=== PATIENT | female | born 1940 | race Caucasian/White ===

== ENCOUNTER → 2018-10-22 | Outpatient (CLI) | payer MEDICARE ==
--- NOTE | 2018-10-22 14:55 | XR ---
EXAMINATION TYPE: XR thoracic spine complete DATE OF EXAM: 10/22/2018 COMPARISON: NONE HISTORY: Pain Alignment is anatomic. There is no compression deformities. Hypertrophic and degenerative disc disea se noted throughout the thoracic spine and lower visualized cervical spine. Multilevel severe degener ative disc disease with hypertrophic spurring. IMPRESSION: 1. Multilevel severe degenerative disc disease with hypertrophic spurring.
== END | disposition home or self-care (01) ==
LOC: RADXRMAIN 14:30
PROVIDERS: ATTEND Family Medicine
DX: M51.34 Other intervertebral disc degeneration, thoracic region (principal)
CPT/HCPCS: 72072

== ENCOUNTER → 2018-11-28 | Outpatient (CLI) | payer MEDICARE ==
--- NOTE | 2018-11-29 10:19 | MM ---
Reason for exam: screening (asymptomatic). Last mammogram was performed 1 year ago. History: Patient is postmenopausal. Benign cyst aspiration of the left breast. Took estrogen for 7 years beginning at age 52. Taking unspecified hormones for 2 months beginning at age 66. Physical Findings: A clinical breast exam by your physician is recommended on an annual basis and results should be correlated with mammographic findings. MG 3D Screening Mammo W/Cad Bilateral CC and MLO view(s) were taken. Prior study comparison: November 13, 2017, bilateral MG 3d screening mammo w/cad. October 13, 2016, right breast MG work up mamm w CAD RT. The breast tissue is heterogeneously dense. This may lower the sensitivity of mammography. Stable benign calcifications. There is no discrete abnormality. No significant changes when compared with prior studies. ASSESSMENT: Benign, BI-RAD 2 RECOMMENDATION: Routine screening mammogram of both breasts in 1 year.
== END | disposition home or self-care (01) ==
LOC: RADMAMWWP 13:24
PROVIDERS: ATTEND Family Medicine
DX: Z12.31 Encounter for screening mammogram for malignant neoplasm of breast (principal)
CPT/HCPCS: 77063; 77067

== ENCOUNTER → 2019-05-06 | Outpatient (CLI) | payer MEDICARE ==
--- NOTE | 2019-05-06 18:48 | ECHOF ---
Referral Reason:R01.1 cardiac murmur MEASUREMENTS -------- HEIGHT: 154.9 cm WEIGHT: 83.9 kg BP: IVSd: 0.8 cm (0.6 - 1.1) LVIDd: 3.8 cm (3.9 - 5.3) LVPWd: 1.0 cm (0.6 - 1.1) IVSs: 1.0 cm LVIDs: 2.3 cm LVPWs: 1.6 cm LAESV Index (A-L): 31.18 ml/m Ao Diam: 2.2 cm (2.0 - 3.7) LA Diam: 3.7 cm (2.7 - 3.8) AV Cusp: 1.5 cm (1.5 - 2.6) EPSS: 1.0 cm MV E Figueroa: 1.14 m/s MV DecT: 244 ms MV A Figueroa: 0.98 m/s MV E/A Ratio: 1.17 RAP: 5.00 mmHg RVSP: 53.70 mmHg MV EF SLOPE: 179.04 mm/s (70 - 150) MV EXCURSION: 20.95 mm (> 18.000) FINDINGS -------- Sinus rhythm. This was a technically good study. The left ventricular size is normal. Left ventricular wall thickness is normal. Overall left vent ricular systolic function is normal with, an EF between 55 - 60 %. The right ventricle is normal in size. LA is midly dilated 29-33ml/m2. The right atrial size is normal. Interatrial and interventricular septum intact. The aortic valve is trileaflet and appears structurally normal. The mitral valve is normal. Moderate mitral regurgitation is present. Severe tricuspid regurgitation present. There is moderate pulmonary hypertension. The right ventr icular systolic pressure, as measured by Doppler, is 53.70mmHg. Pulmonic valve appears structurally normal. The aortic root size is normal. Normal inferior vena cava with normal inspiratory collapse consistent with estimated right atrial pre ssure of 5 mmHg. There is no pericardial effusion. CONCLUSIONS -------- 1. Sinus rhythm. 2. This was a technically good study. 3. The left ventricular size is normal. 4. Left ventricular wall thickness is normal. 5. Overall left ventricular systolic function is normal with, an EF between 55 - 60 %. 6. The right ventricle is normal in size. 7. LA is midly dilated 29-33ml/m2. 8. The right atrial size is normal. 9. Interatrial and interventricular septum intact. 10. The aortic valve is trileaflet and appears structurally normal. 11. The mitral valve is normal. 12. Moderate mitral regurgitation is present. 13. Severe tricuspid regurgitation present. 14. There is moderate pulmonary hypertension. 15. The right ventricular systolic pressure, as measured by Doppler, is 53.70mmHg. 16. Pulmonic valve appears structurally normal. 17. The aortic root size is normal. 18. Normal inferior vena cava with normal inspiratory collapse consistent with estimated right atrial pressure of 5 mmHg. 19. There is no pericardial effusion. OYSTER OPENER: Bernice William RDCS
== END | disposition home or self-care (01) ==
LOC: RADECHMAIN 11:20
PROVIDERS: ATTEND Family Medicine
DX: I08.1 Rheumatic disorders of both mitral and tricuspid valves (principal); I27.20 Pulmonary hypertension, unspecified
CPT/HCPCS: 93306

== ENCOUNTER → 2019-06-10 | Outpatient (CLI) | payer MEDICARE ==
--- NOTE | 2019-06-10 15:27 | XR ---
EXAMINATION TYPE: XR chest 2V DATE OF EXAM: 06/10/2019 COMPARISON: NONE TECHNIQUE: PA and lateral views submitted. HISTORY: Heart murmur pulmonary hypertension FINDINGS: The lungs are clear and there is no pneumothorax, pleural effusion, or focal pneumonia. Hypertrophi c and degenerative change of the spine. No overt failure. IMPRESSION: 1. No acute process.
== END | disposition home or self-care (01) ==
LOC: RADXRMAIN 15:05
PROVIDERS: ATTEND Internal Medicine Interventional Cardiology
DX: I27.20 Pulmonary hypertension, unspecified (principal)
CPT/HCPCS: 71046

== ENCOUNTER → 2019-07-08 | Outpatient (CLI) | payer MEDICARE | DX: I27.20 Pulmonary hypertension, unspecified (principal) | CPT/HCPCS: 94060; 94726; 94729 ==

== ENCOUNTER → 2019-12-27 | Outpatient (CLI) | payer MEDICARE ==
--- NOTE | 2019-12-29 14:32 | MM ---
Reason for exam: screening (asymptomatic). Last mammogram was performed 1 year and 1 month ago. History: Patient is postmenopausal. Benign cyst aspiration of the left breast. Took estrogen for 7 years beginning at age 52. Taking unspecified hormones for 2 months beginning at age 66. Physical Findings: A clinical breast exam by your physician is recommended on an annual basis and results should be correlated with mammographic findings. MG 3D Screening Mammo W/Cad Bilateral CC and MLO view(s) were taken. XCCL view(s) were taken of the right breast. Prior study comparison: November 28, 2018, bilateral MG 3d screening mammo w/cad. November 13, 2017, bilateral MG 3d screening mammo w/cad. The breast tissue is heterogeneously dense. This may lower the sensitivity of mammography. Stable benign calcifications in the left breast. There is no discrete abnormality. No significant changes when compared with prior studies. ASSESSMENT: Benign, BI-RAD 2 RECOMMENDATION: Routine screening mammogram of both breasts in 1 year.
== END | disposition home or self-care (01) ==
LOC: RADMAMWWP 10:35
PROVIDERS: ATTEND Family Medicine
DX: Z12.31 Encounter for screening mammogram for malignant neoplasm of breast (principal)
CPT/HCPCS: 77063; 77067

== ENCOUNTER → 2020-02-11 | Outpatient (CLI) | payer MEDICARE ==
--- NOTE | 2020-02-11 11:53 | CT ---
EXAMINATION TYPE: CT abdomen pelvis wo con DATE OF EXAM: 02/11/2020 HISTORY: Left sided flank pain with recent UTI. Calculus of ureter yulissa. CT DLP: 595.4 mGycm. Automated Exposure Control for Dose Reduction was Utilized. TECHNIQUE: CT scan of the abdomen and pelvis is performed without oral or IV contrast. COMPARISON: NONE FINDINGS: Within the limitations of a non-contrast study, the following observations are made. LUNG BASES: Calcification at level of mitral and aortic valve. LIVER/GB: No significant abnormality is appreciated. PANCREAS: No significant abnormality is seen. SPLEEN: No significant abnormality is seen. ADRENALS: No significant abnormality is seen. KIDNEYS: There are 1-2 renal calculi measuring under 2 mm in size for a reference lower pole right ki dney coronal image 58. No hydronephrosis or definitive right ureter calculi. There are phleboliths al ramone the course of the right ureter. Left kidney shows single 2 to 3 mm calculus lower Pole level coronal image 53 no hydronephrosis or ob structing ureteral calculi. There are adjacent phleboliths along the course of the mid to distal left ureter similar to opposite right side. Multiple bilateral pelvic phleboliths. No intraluminal calculus in the bladder. BOWEL: A few diverticuli in the slightly redundant sigmoid colon. No suspicious small or large bowel dilatation. GENITAL ORGANS: Uterus surgically absent or markedly atrophic. LYMPH NODES: Suspect calcified subcentimeter lymph node near yulissa hepatis coronal image [address] ter than 1cm abdominal or pelvic lymph nodes are appreciated. OSSEOUS STRUCTURES: [id number] multilevel disc space narrowing and spurring. Dextroconvex sco liosis centered at L2 level. Straightening of lumbar spine on sagittal images with multilevel spur di sc complexes effacing the anterior thecal sac. Mild to moderate narrowing and spurring in both hip carlitos ints. Some spurring at greater trochanter level bilaterally. OTHER: Anterior 8 mm calcification left mid abdomen axial image 81 uncertain etiology presumed benign . IMPRESSION: Few tiny nonobstructing renal calculi bilaterally. No definitive hydronephrosis or obstru cting ureteral calculi bilaterally. Multiple phleboliths in the pelvis including along course of the mid to distal ureters bilaterally are present. The source of acute left flank pain not clearly identi fied.
== END | disposition home or self-care (01) ==
LOC: RADCTMAIN 11:19
PROVIDERS: ATTEND Urology
DX: N20.0 Calculus of kidney (principal); I87.8 Other specified disorders of veins; Z88.2 Allergy status to sulfonamides
CPT/HCPCS: 74176

== ENCOUNTER → 2020-07-14 | Outpatient (CLI) | payer MEDICARE ==
--- NOTE | 2020-07-14 13:09 | XR ---
EXAMINATION TYPE: XR KUB DATE OF EXAM: 07/14/2020 COMPARISON: 02/11/2020 HISTORY: Pain TECHNIQUE: One view abdominal series FINDINGS: Scoliotic curvature of the spine. There is a 3 mm calcification overlying the lower pole the left kid lacy. There are multiple 5 mm calcification seen in the right upper quadrant difficult to determine wh ether related to gallbladder or right kidney. There are calcifications along the right paraspinal mel e as well as ossifications along the left paraspinal line. Numerous calcifications are seen in the pe lvis. IMPRESSION: 1. Suspected bilateral nephrolithiasis. Mid right ureteral calculus not excluded. Correlate clinicall y.
== END | disposition home or self-care (01) ==
LOC: RADXRMAIN 12:45
PROVIDERS: ATTEND Urology
DX: N20.0 Calculus of kidney (principal)
CPT/HCPCS: 74018

== ENCOUNTER → 2020-08-17 | Outpatient (CLI) | payer MEDICARE ==
--- NOTE | 2020-08-17 14:26 | CT ---
EXAMINATION TYPE: CT abdomen pelvis wo con DATE OF EXAM: 08/17/2020 COMPARISON: 02/11/2020 HISTORY: Calculus of kidney CT DLP: 546.0 mGycm Automated exposure control for dose reduction was used. TECHNIQUE: Helical acquisition of images was performed from the lung bases through the pelvis. FINDINGS: LUNG BASES: Pleural thickening is somewhat nodular along the right lower lobe appears to be inflammat ory. Atherosclerotic change of the aorta. Small hiatal hernia noted. LIVER/GB: No significant abnormality is appreciated. PANCREAS: No significant abnormality is seen. SPLEEN: No significant abnormality is seen. ADRENALS: No significant abnormality is seen. KIDNEYS: Right kidney: There is a 2 punctate 1 mm lower pole right renal calculus. Mild prominence of the mohini l pelvis. Ureter of normal course and caliber. No evidence of ureteral obstruction or calculus. Left kidney: There is a 2 mm lower pole left renal calculus no hydronephrosis. ADENOPATHY: None visualized. OSSEOUS STRUCTURES: Multilevel hypertrophic degenerative change and scoliosis. Arthropathy of the hi ps.. BOWEL: Bowel gas pattern nonspecific. Diverticulosis of the colon.. OTHER: A stable soft tissue calcifications in the mesentery IMPRESSION: 1. Stable subcentimeter nephrolithiasis bilaterally. No hydronephrosis. 2. Benign-appearing mesenteric calcifications
== END | disposition home or self-care (01) ==
LOC: RADCTMAIN 13:44
PROVIDERS: ATTEND Urology
DX: N20.0 Calculus of kidney (principal); Z88.2 Allergy status to sulfonamides
CPT/HCPCS: 74176

== ENCOUNTER → 2021-01-21 | Outpatient (CLI) | payer MEDICARE ==
--- NOTE | 2021-01-21 14:11 | XR ---
Sternum HISTORY: M 95.4 3 views of the sternum Bone mineralization is maintained. There is no evident depressed sternal fracture. Sternum is not wel l seen on plain film in the oblique projections. Alignment appears maintained. Thoracic spondylosis i s noted. Aorta is dense. IMPRESSION: No acute abnormality. CT scan could be performed for better evaluation.
== END | disposition home or self-care (01) ==
LOC: RADXRMAIN 13:12
PROVIDERS: ATTEND Family Medicine
DX: M95.4 Acquired deformity of chest and rib (principal)
CPT/HCPCS: 71120

== ENCOUNTER → 2021-06-02 | Outpatient (CLI) | payer MEDICARE ==
--- NOTE | 2021-06-06 14:30 | MM ---
Reason for exam: screening (asymptomatic). Last mammogram was performed 1 year and 5 months ago. History: Patient is postmenopausal. Benign cyst aspiration of the left breast. Took hormonal contraceptives for 6 months. Took estrogen for 7 years beginning at age 52. Taking unspecified hormones for 2 months beginning at age 66. Physical Findings: A clinical breast exam by your physician is recommended on an annual basis and results should be correlated with mammographic findings. MG 3D Screening Mammo W/Cad Bilateral CC and MLO view(s) were taken. Prior study comparison: December 27, 2019, bilateral MG 3d screening mammo w/cad. November 28, 2018, bilateral MG 3d screening mammo w/cad. The breast tissue is heterogeneously dense. This may lower the sensitivity of mammography. ASSESSMENT: Benign, BI-RAD 2 RECOMMENDATION: Routine screening mammogram of both breasts in 1 year.
== END | disposition home or self-care (01) ==
LOC: RADMAMWWP 13:07
PROVIDERS: ATTEND Family Medicine
DX: Z12.31 Encounter for screening mammogram for malignant neoplasm of breast (principal); Z78.0 Asymptomatic menopausal state; Z79.3 Long term (current) use of hormonal contraceptives
CPT/HCPCS: 77063; 77067

== ENCOUNTER → 2022-07-20 | Outpatient (CLI) | payer MEDICARE ==
--- NOTE | 2022-07-21 10:37 | MM ---
Reason for Exam: Screening (asymptomatic). Last mammogram was performed 1 year(s) and 1 month(s) ago. Patient History: Menarche at age 14. First Full-Term at age 22. Left ovary removed at age 52. Right ovary removed at age 52. Hysterectomy at age 52. Postmenopausal. Estrogen, starting at age 52 for 7 years. Hormonal Contraceptives for 6 months. Currently using Unspecified Hormone, for 2 months. Benign Cyst Aspiration on the left side. Risk Values: Natali 5 year model risk: 1.5%. NCI Lifetime model risk: 2.5%. Prior Study Comparison: 11/28/2018 Bilateral Screening Mammogram, [facility]. 12/27/2019 Bilateral Screening Mammogram, [facility]. 06/02/2021 Bilateral Screening Mammogram, [facility]. Tissue Density: There are scattered fibroglandular densities. Findings: Analyzed By CAD. Some benign-appearing calcifications are within the right breast. No suspicious groups of microcalcifications, spiculated or lobular masses, architectural distortion or other secondary signs of malignancy are mammographically apparent. Overall Assessment: Benign, BI-RAD 2 Management: Screening Mammogram of both breasts in 1 year. A negative mammogram report should not preclude additional follow up of suspicious palpable abnormalities. Patient should continue monthly self breast exam. A clinical breast exam by your physician is recommended on an annual basis and results should be correlated with mammographic findings. Electronically signed and approved by: Bogdan Gamino D.O. Radiologis
== END | disposition home or self-care (01) ==
LOC: RADMAMWWP 14:55
PROVIDERS: ATTEND Family Medicine
DX: Z12.31 Encounter for screening mammogram for malignant neoplasm of breast (principal); Z78.0 Asymptomatic menopausal state
CPT/HCPCS: 77063; 77067

== ENCOUNTER → 2023-07-27 | Outpatient (CLI) | payer MEDICARE ==
--- NOTE | 2023-07-31 22:51 | MM ---
Reason for Exam: Screening (asymptomatic). Last mammogram was performed 1 year(s) and 1 month(s) ago. Patient History: Menarche at age 14. First Full-Term at age 22. Left ovary removed at age 52. Right ovary removed at age 52. Hysterectomy at age 52. Postmenopausal. Estrogen, starting at age 52 for 7 years. Hormonal Contraceptives for 6 months. Currently using Unspecified Hormone, for 2 months. Benign Cyst Aspiration on the left side. Risk Values: Natali 5 year model risk: 1.5%. NCI Lifetime model risk: 2.3%. Prior Study Comparison: 12/27/2019 Bilateral Screening Mammogram, [facility]. 06/02/2021 Bilateral Screening Mammogram, [facility]. 07/20/2022 Bilateral MG 3D screening mammo w/cad, [facility]. Tissue Density: There are scattered fibroglandular densities. Findings: Analyzed By CAD. Centrally located focal asymmetry on the right remains unchanged. There is no suspicious group of microcalcifications or new suspicious mass in either breast. Overall Assessment: Benign, BI-RAD 2 Management: Screening Mammogram of both breasts in 1 year. . Patient should continue monthly self-breast exams. A clinical breast exam by your physician is recommended on an annual basis. This exam should not preclude additional follow-up of suspicious palpable abnormalities. Note on Natali scores and lifetime risk: 1. A Natali score greater than 3% is considered moderate risk. If this is the case, consider specialist referral to assess eligibility for a risk reducing agent. 2. If overall lifetime risk for the development of breast cancer is 20% or higher, the patient may qualify for future screening with alternating mammogram and breast MRI. Electronically signed and approved by: Rg Benjamin M.D. Radiologist
== END | disposition home or self-care (01) ==
LOC: RADMAMWWP 12:52
PROVIDERS: ATTEND Family Medicine
DX: Z12.31 Encounter for screening mammogram for malignant neoplasm of breast (principal); Z78.0 Asymptomatic menopausal state
CPT/HCPCS: 77063; 77067

== ENCOUNTER → 2024-08-04 | Outpatient (CLI) | payer MEDICARE ==
--- NOTE | 2024-08-05 13:32 | BD ---
EXAMINATION TYPE: Axial Bone Density DATE OF EXAM: 08/04/2024 CLINICAL HISTORY: 83 years old Female. ICD-10 CODE: Z78.0 ASYMPTOMATIC MENOPAUSAL Height: 60 Weight: 157 FRAX RISK QUESTIONS: Alcohol (3 or more units per day): no Family History (Parent hip fracture): no Glucocorticoids (More than 3mos): no (Ex: prednisone, prednisolone, methylprednisolone, dexamethasone, and hydrocortisone). History of Fracture in Adulthood: no Secondary Osteoporosis: 1. Type 1 Diabetes: no 2. Hyperthyroidism: no 3. Menopause before 45: no 4. Malnutrition: no 5. Chronic liver disease: no Rheumatoid Arthritis: no Current Tobacco Use: no RISK FACTORS HISTORY OF: Surgery to Spine/Hip(right/left)/Wrist (right/left): no EXAM MEASUREMENTS: Bone mineral densitometry was performed using the Apparent System. Bone mineral density as measured about the Lumbar spine is: ----- L1-L4(G/cm2): 1.714 T Score Values are as follows: ----- L1: 2.3 ----- L2: 3.8 ----- L3: 5.3 ----- L4: 6.5 ----- L1-L4: 4.5 Z Score Values are as follows: ----- L1: 3.9 ----- L2: 5.4 ----- L3: 7.0 ----- L4: 8.1 ----- L1-L4: 6.1 Bone mineral density has: increased 2.5 % since study of: 11.13.2017 Bone mineral density about the R hip (g/cm2): 0.920 Bone mineral density about the L hip (g/cm2): 1.036 T Score values are as follows: -----R Neck: -1.3 -----L Neck: -0.7 -----R Total: -0.7 -----L Total: 0.2 Z Score values are as follows: -----R Neck: 0.8 -----L Neck: 1.3 -----R Total: 1.2 -----L Total: 2.2 Bone mineral density has: decreased -8.3 % since study of: 12.19.2017 FRAX%s: The graph provided illustrates a 12.2% chance for a major osteoporotic fx and a 2.8% chance f or the hips probability for fx in 10 years time. IMPRESSION: Normal (Values between +1 and -1 indicate normal bone mass). Consider repeating this study in 5 year s or sooner if there is some new clinical indication. NOTE: T-SCORE=SD OF THE YOUNG ADULT MEAN.
--- NOTE | 2024-08-05 17:32 | MM ---
Reason for Exam: Screening (asymptomatic). Last screening mammogram was performed 12 month(s) ago. Patient History: Menarche at age 14. First Full-Term at age 22. Left ovary removed at age 52. Right ovary removed at age 52. Hysterectomy at age 52. Postmenopausal. Estrogen, starting at age 52 for 7 years. Hormonal Contraceptives for 6 months. Currently using Unspecified Hormone, for 2 months. Benign Cyst Aspiration on the left side. Risk Values: Natali 5 year model risk: 1.4%. NCI Lifetime model risk: 2.1%. Prior Study Comparison: 06/02/2021 Bilateral Screening Mammogram, [facility]. 07/20/2022 Bilateral MG 3D screening mammo w/cad, [facility]. 07/27/2023 Bilateral MG 3D screening mammo w/cad, [facility]. Tissue Density: There are scattered areas of fibroglandular density. Findings: Analyzed By CAD. Unchanged bilateral areas of asymmetric density. There is no suspicious group of microcalcifications or new suspicious mass in either breast. Overall Assessment: Benign, BI-RAD 2 Management: Screening Mammogram of both breasts in 1 year. . Patient should continue monthly self-breast exams. A clinical breast exam by your physician is recommended on an annual basis. This exam should not preclude additional follow-up of suspicious palpable abnormalities. Note on Natali scores and lifetime risk: 1. A Natali score greater than 3% is considered moderate risk. If this is the case, consider specialist referral to assess eligibility for a risk reducing agent. 2. If overall lifetime risk for the development of breast cancer is 20% or higher, the patient may qualify for future screening with alternating mammogram and breast MRI. Electronically signed and approved by: Rg Benjamin M.D. Radiologist
== END | disposition home or self-care (01) ==
LOC: RADMAMWWP 14:53
PROVIDERS: ATTEND Family Medicine
DX: Z12.31 Encounter for screening mammogram for malignant neoplasm of breast (principal); M85.89 Other specified disorders of bone density and structure, multiple sites; Z78.0 Asymptomatic menopausal state; Z90.722 Acquired absence of ovaries, bilateral
CPT/HCPCS: 77063; 77067; 77080

== ENCOUNTER → 2025-05-18 | Outpatient (CLI) | payer MEDICARE ==
--- NOTE | 2025-05-19 09:01 | XR ---
EXAMINATION TYPE: XR lumbosacral spine 5 views DATE OF EXAM: 05/18/2025 4:29 PM COMPARISON: None CLINICAL INDICATION: Female, 84 years old with history of M54.50; PHH, pain FINDINGS: Degenerated dextroconvex curvature lumbar spine. There is a right L5 hemisacralization with the sacra l ala. Severe degenerative disc disease especially mid lumbar spine along the left side of concavity. Advanced hypertrophic facet arthropathy is present throughout. Degenerative grade 1 retrolisthesis T 12-L1 and grade 1 anterolisthesis L4-L5. Vertebral body heights are preserved. IMPRESSION: 1. Advanced degenerative and dextroconvex scoliosis of the lumbar spine. 2. Degenerative trace spondylolisthesis T12-L1 and L4-L5. 3. Incidental right L5 hemisacralization. 4. No vertebral compression collapse. [facility], , 05/19/2025 8:58 AM
== END | disposition home or self-care (01) ==
LOC: RADXRMAIN 16:12
PROVIDERS: ATTEND Family Medicine
DX: M51.369 Other intervertebral disc degeneration, lumbar region without mention of lumbar back pain or lower extremity pain (principal); M41.86 Other forms of scoliosis, lumbar region; M43.15 Spondylolisthesis, thoracolumbar region; M47.816 Spondylosis without myelopathy or radiculopathy, lumbar region
CPT/HCPCS: 72110

== ENCOUNTER 2025-05-31 10:09 | Inpatient (IN) | payer MEDICARE ==
[2025-05-31 10:50] LABS: Basophils # (A) 0.05 10*3/uL (0.00-0.10); Basophils % (A) 0.3 %; Eosinophils # (A) 0.45 10*3/uL (0.04-0.35); Eosinophils % (A) 3.0 %; HCT 33.4 % (37.2-46.3); HGB 11.5 g/dL (12.0-15.0); Lymphocytes # (A) 0.20 10*3/uL (0.90-5.00); Lymphocytes % (A) 1.3 %; MCH 30.4 pg (27.0-32.0); MCHC 34.4 g/dL (32.0-37.0); MCV 88.4 fL (80.0-97.0); Monocytes # (A) 0.50 10*3/uL (0.20-1.00); Monocytes % (A) 3.3 %; Neutrophils # (A) 13.85 10*3/uL (1.80-7.70); Neutrophils % (A) 91.2 %; Platelet Count 206 10*3/uL (140-440); RBC 3.78 10*6/uL (4.10-5.20); RDW 12.8 % (11.5-14.5); WBC 15.19 10*3/uL (4.50-10.00)
[2025-05-31] MEDS: SODIUM CHLORIDE 0.9% 500 ML 500 ML IV ONE (10:55)
[2025-05-31] MEDS: ONDANSETRON 4 MG/2 ML VIAL IVP STA (10:55)
[2025-05-31] MEDS: BENZONATATE 100 MG CAP PO STA (10:55)
[2025-05-31] MEDS: guaiFENesin-Coden 100-10MG/5ML 10 ML CUP PO STA (10:55)
[2025-05-31] MEDS: KETOROLAC 15 MG/ML 1 ML VIAL IVP STA (10:55)
[2025-05-31 11:03] LABS: INR 1.1 (<1.2); Partial Thromboplastin Time 22.7 sec (22.0-30.0); Prothrombin Time 11.9 sec (10.0-12.5)
[2025-05-31 11:07] LABS: ALT 128 U/L (4-34); AST 180 U/L (14-36); African American GFR (CKD) 47 (>60 ml/min/1.73 sqM); Albumin 3.5 g/dL (3.5-5.0); Alkaline Phosphatase 293 U/L (38-126); Anion Gap 13 mmol/L; Blood Urea Nitrogen 37 mg/dL (7-17); Calcium 9.7 mg/dL (8.4-10.2); Carbon Dioxide 26 mmol/L (22-30); Chloride 97 mmol/L (98-107); Glucose 146 mg/dL (74-99); Lipase 232 U/L (23-300); Magnesium 1.3 mg/dL (1.6-2.3); Non-African American GFR(CKD) 41 (>60 ml/min/1.73 sqM); Potassium 3.4 mmol/L (3.5-5.1); Sodium 136 mmol/L (137-145); Total Protein 6.2 g/dL (6.3-8.2)
--- NOTE | 2025-05-31 11:14 | XR ---
EXAMINATION TYPE: XR chest 2V DATE OF EXAM: 05/31/2025 10:53 AM COMPARISON: Chest radiographs from 01/21/2021. CLINICAL INDICATION: Female, 84 years old with history of difficulty breathing; [facility] TECHNIQUE: XR chest 2V Frontal and lateral views of the chest. FINDINGS: Lungs/Pleura: Subtle right basilar airspace opacities. There is no evidence of pleural effusion, foca l consolidation, or pneumothorax. Pulmonary vascularity: Unremarkable. Heart/mediastinum: Cardiomediastinal silhouette is unremarkable. Musculoskeletal: No acute osseous pathology. Other findings: None IMPRESSION: Right basilar airspace opacities are subtle correlate for developing pneumonia. [facility], , 05/31/2025 11:12 AM
[2025-05-31 11:15] LABS: NT-Pro-B-Type Natriuretic Pept 3760 pg/mL
[2025-05-31] MEDS ORDERED: PNEUMONIA PROTOCOL UTILIZED 1 EACH MISC PO PRN (11:25)
[2025-05-31 11:31] LABS: RSV Not Detected (Not Detectd)
--- NOTE | 2025-05-31 11:49 | ED ---
SOB HPI - General Chief Complaint: Shortness of Breath Stated Complaint: Chest pain, pain all over Time Seen by Provider: 05/31/25 10:23 Source: patient, RN notes reviewed Mode of arrival: ambulatory Limitations: no limitations - History of Present Illness Initial Comments: This is an 84-year-old female who presents to the emergency department for coughing, congestion, chest pain, and shortness of breath. States that it has been going on for about a week. Cough is nonproductive. Denies any fevers/chills or known sick contacts. States that she is going into coughing fits that then make her vomit. Denies any abdominal pain. MD Complaint: shortness of breath, cough - Related Data Home Medications Medication Instructions Recorded Confirmed Atorvastatin [Lipitor] 20 mg PO DAILY 05/31/25 05/31/25 Cholecalciferol [Vitamin D3 (125 125 mcg PO DAILY 05/31/25 05/31/25 Mcg = 5000 Iu)] Cinnamon Bark [Cinnamon] 1,000 mg PO DAILY 05/31/25 05/31/25 L.acidoph,Paracasei, B.lactis 1 cap PO DAILY 05/31/25 05/31/25 [Probiotic] Levothyroxine Sodium [Synthroid] 88 mcg PO DAILY 05/31/25 05/31/25 Magnesium Oxide [Mag-Ox] 250 mg PO HS 05/31/25 05/31/25 Melatonin 5 mg PO HS 05/31/25 05/31/25 Multivitamins, Thera [Multivitamin 1 tab PO DAILY 05/31/25 05/31/25 (formulary)] Nitrofurantoin Monohyd/M-Cryst 100 mg PO Q12HR 05/31/25 05/31/25 [Macrobid] Vitamin B Complex 1 cap PO DAILY 05/31/25 05/31/25 atenoloL [Tenormin] 50 mg PO HS 05/31/25 05/31/25 flaxseed oiL [Flax Oil] 1,300 mg PO DAILY 05/31/25 05/31/25 hydroCHLOROthiazide [Hydrodiuril] 25 mg PO DAILY 05/31/25 05/31/25 metFORMIN HCL [Glucophage] 500 mg PO DAILY 05/31/25 05/31/25 Allergies Allergy/AdvReac Type Severity Reaction Status Date / Time Sulfa (Sulfonamide Allergy Rash/Hives Verified 05/31/25 13:04 Antibiotics) Review of Systems ROS Statement: Those systems with pertinent positive or pertinent negative responses have been documented in the HPI. ROS Other: All systems not noted in ROS Statement are negative. Past Medical History Past Medical History: Diabetes Mellitus, Hyperlipidemia, Hypertension, Thyroid Disorder Additional Past Medical History / Comment(s): heart valve issues, Additional Past Surgical History / Comment(s): bilateral cateract surgery, bladder suspension, wrist, Past Psychological History: No Psychological Hx Reported Smoking Status: Never smoker Past Alcohol Use History: None Reported Past Drug Use History: None Reported General Exam Limitations: no limitations General appearance: alert, in no apparent distress Head exam: Present: atraumatic, normocephalic, normal inspection Respiratory exam: Present: decreased breath sounds, prolonged expiratory Cardiovascular Exam: Present: regular rate, normal rhythm GI/Abdominal exam: Present: soft. Absent: distended, tenderness Neurological exam: Present: alert, oriented X3, CN II-XII intact Psychiatric exam: Present: normal affect, normal mood Skin exam: Present: warm, dry, intact, normal color. Absent: rash Course Vital Signs 05/31/25 05/31/25 05/31/25 10:11 13:16 14:56 Temperature 98.3 F 97.3 F L Pulse Rate 95 66 65 Respiratory 20 16 18 Rate Blood Pressure 99/65 96/59 101/59 O2 Sat by Pulse 96 95 98 Oximetry 05/31/25 15:25 Temperature Pulse Rate Respiratory 16 Rate Blood Pressure O2 Sat by Pulse Oximetry Medical Decision Making - Medical Decision Making This is an 84 year old female who presents to the emergency department for shortness of breath and chest pain. Was pt. sent in by a medical professional or institution? @ -No Did you speak to anyone other than the patient for history? @ -No Did you review nursing and triage notes? @ -Yes, and I agree, it is accurate with regards to the patient's symptoms. Were old charts reviewed? @ -No Differential Diagnosis? @ -Differential Dyspnea: Coronary syndrome, arrhythmia, tamponade, asthma, COPD, pulmonary embolism, pneumonia, pneumothorax, pulmonary effusion, anaphylaxis, diabetic ketoacidosis, flailed chest, pulmonary contusion, diaphragmatic rupture, anemia, neuromuscular, this is not meant to be an all-inclusive list. EKG interpreted by me (3pts min.)? @ -EKG interpreted by me demonstrating the following: Sinus rhythm. Ventricular rate 88 bpm, NC interval 211 ms, QRS duration 108 ms, QTc 422 ms. X-rays interpreted by me (1pt min.)? @ -Chest x-ray obtained. My interpretation identifies right lower lobe opacities. CT interpreted by me (1pt min.)? @ -Not obtained U/S interpreted by me (1pt. min.)? @ -Gallbladder ultrasound obtained. My interpretation identifies no cholelithiasis or CBD dilation. What testing was considered but not performed? (CT, X-rays, U/S, labs)? Why? @ -None What meds were considered but not given? Why? @ -None Did you discuss the management of the patient with other professionals? @ -Yes, Dr. Dubose, who accepts the patient for admission. Did you reconcile home meds? @ -Yes Was smoking cessation discussed for >3mins.? @ -No Was critical care preformed (if so, how long)? @ -No Were there social determinants of health that impacted care today? How? (Homelessness, low income, unemployed, alcoholism, drug addiction, transportation, low edu. Level, literacy, decrease access to med. care, [facility], rehab)? @ -No Was there de-escalation of care discussed even if they declined? (Discuss DNR or withdrawal of care, Hospice)? @ -No What co-morbidities impacted this encounter? (DM, HTN, Smoking, COPD, CAD, Cancer, CVA, Hep., AIDS, mental health diagnosis, sleep apnea, morbid obesity)? @ -DM Was patient admitted / discharged? @ -Admitted. Lab work demonstrates leukocytosis with a white blood cell count of 15.19. She also has an LUIS ENRIQUE with a creatinine of 1.23 and eGFR of 41. Magnesium is low at 1.3. 3 g of magnesium sulfate administered. BNP 3760. LFTs are also elevated. Chest x-ray reveals concerns for a developing right lower lobe pneumonia. She met sepsis criteria at approximately 1115 when I saw the results of her laboratory studies and chest x-ray. SIRS criteria include her heart rate and leukocytosis with pneumonia as the source of infection. Blood culture obtained and she was started on the pneumonia protocol with ceftriaxone and azithromycin. While she has no documented history of CHF, given the elevated BNP to err on the side of caution she was given 1500 mL of IV fluids as opposed to the typical 30 mL/kg amount. We did obtain a gallbladder ultrasound due to the elevated LFTs. There is concern for pancreatic ductal dilation and they advised further evaluation with an MRCP. However, this is unlikely to be related to today's presentation as she is not experiencing a bdominal pain and is only vomiting if she goes into a coughing fit. It is also unlikely that this is an acute finding and is not something that will need emergent intervention. This can likely be worked up on an outpatient basis after the patient is admitted for management of sepsis secondary to pneumonia and hypomagnesemia. Case discussed with ED attending Dr. Henriquez. Undiagnosed new problem with uncertain prognosis? @ -None Drug Therapy requiring intensive monitoring for toxicity (Heparin, Nitro, Insulin, Cardizem)? @ -None Were any procedures done? @ -None Diagnosis/symptom? @ -Sepsis, pneumonia, hypomagnesemia Acute, or Chronic, or Acute on Chronic? @ -Acute Uncomplicated (without systemic symptoms) or Complicated (systemic symptoms)? @ -Complicated Side effects of treatment? @ -None Exacerbation, Progression, or Severe Exacerbation] @ -Not applicable Poses a threat to life or bodily function? @ -Yes, can lead to septic shock and - Lab Data Result diagrams: 05/31/25 10:41 05/31/25 10:41 Lab Results 05/31/25 05/31/25 05/31/25 Range/Units 10:41 10:41 10:41 WBC 15.19 H (4.50-10.00) 10*3/uL RBC 3.78 L (4.10-5.20) 10*6/uL Hgb 11.5 L (12.0-15.0) g/dL Hct 33.4 L (37.2-46.3) % MCV 88.4 (80.0-97.0) fL MCH 30.4 (27.0-32.0) pg MCHC 34.4 (32.0-37.0) g/dL Plt Count 206 (140-440) 10*3/uL MPV 10.0 (9.5-12.2) fL Immature Gran % (Auto) 0.9 % Neutrophils % 91.2 % Lymphocytes % 1.3 % Monocytes % 3.3 % Eosinophils % 3.0 % Basophils % 0.3 % Immature Gran # 0.14 H (0.00-0.04) 10*3/uL Neutrophils # 13.85 H (1.80-7.70) 10*3/uL Lymphocytes # 0.20 L (0.90-5.00) 10*3/uL Monocytes # 0.50 (0.20-1.00) 10*3/uL Eosinophils # 0.45 H (0.04-0.35) 10*3/uL Basophils # 0.05 (0.00-0.10) 10*3/uL PT 11.9 (10.0-12.5) sec INR 1.1 (<1.2) APTT 22.7 (22.0-30.0) sec Sodium 136 L (137-145) mmol/L Potassium 3.4 L (3.5-5.1) mmol/L Chloride 97 L (98-107) mmol/L Carbon Dioxide 26 (22-30) mmol/L Anion Gap 13 mmol/L BUN 37 H (7-17) mg/dL Creatinine 1.23 H (0.52-1.04) mg/dL Est GFR (CKD-EPI)AfAm 47 (>60 ml/min/1.73 sqM) Est GFR (CKD-EPI)NonAf 41 (>60 ml/min/1.73 sqM) Glucose 146 H (74-99) mg/dL Plasma Lactic Acid Doug (0.7-2.0) mmol/L Calcium 9.7 (8.4-10.2) mg/dL Magnesium 1.3 L (1.6-2.3) mg/dL Total Bilirubin 1.5 H (0.2-1.3) mg/dL AST 180 H (14-36) U/L ALT 128 H (4-34) U/L Alkaline Phosphatase 293 H (38-126) U/L Troponin I (0.000-0.034) ng/mL NT-Pro-B Natriuret Pep 3760 pg/mL Total Protein 6.2 L (6.3-8.2) g/dL Albumin 3.5 (3.5-5.0) g/dL Lipase 232 (23-300) U/L Heterophile Antibody (Negative) Influenza Type A (PCR) (Not Detectd) Influenza Type B (PCR) (Not Detectd) RSV (PCR) (Not Detectd) SARS-CoV-2 (PCR) (Not Detectd) 05/31/25 05/31/25 05/31/25 Range/Units 10:41 10:41 10:41 WBC (4.50-10.00) 10*3/uL RBC (4.10-5.20) 10*6/uL Hgb (12.0-15.0) g/dL Hct (37.2-46.3) % MCV (80.0-97.0) fL MCH (27.0-32.0) pg MCHC (32.0-37.0) g/dL Plt Count (140-440) 10*3/uL MPV (9.5-12.2) fL Immature Gran % (Auto) % Neutrophils % % Lymphocytes % % Monocytes % % Eosinophils % % Basophils % % Immature Gran # (0.00-0.04) 10*3/uL Neutrophils # (1.80-7.70) 10*3/uL Lymphocytes # (0.90-5.00) 10*3/uL Monocytes # (0.20-1.00) 10*3/uL Eosinophils # (0.04-0.35) 10*3/uL Basophils # (0.00-0.10) 10*3/uL PT (10.0-12.5) sec INR (<1.2) APTT (22.0-30.0) sec Sodium (137-145) mmol/L Potassium (3.5-5.1) mmol/L Chloride (98-107) mmol/L Carbon Dioxide (22-30) mmol/L Anion Gap mmol/L BUN (7-17) mg/dL Creatinine (0.52-1.04) mg/dL Est GFR (CKD-EPI)AfAm (>60 ml/min/1.73 sqM) Est GFR (CKD-EPI)NonAf (>60 ml/min/1.73 sqM) Glucose (74-99) mg/dL Plasma Lactic Acid Doug 1.8 (0.7-2.0) mmol/L Calcium (8.4-10.2) mg/dL Magnesium (1.6-2.3) mg/dL Total Bilirubin (0.2-1.3) mg/dL AST (14-36) U/L ALT (4-34) U/L Alkaline Phosphatase (38-126) U/L Troponin I <0.012 (0.000-0.034) ng/mL NT-Pro-B Natriuret Pep pg/mL Total Protein (6.3-8.2) g/dL Albumin (3.5-5.0) g/dL Lipase (23-300) U/L Heterophile Antibody (Negative) Influenza Type A (PCR) Not Detected (Not Detectd) Influenza Type B (PCR) Not Detected (Not Detectd) RSV (PCR) Not Detected (Not Detectd) SARS-CoV-2 (PCR) Not Detected (Not Detectd) 05/31/25 Range/Units 10:41 WBC (4.50-10.00) 10*3/uL RBC (4.10-5.20) 10*6/uL Hgb (12.0-15.0) g/dL Hct (37.2-46.3) % MCV (80.0-97.0) fL MCH (27.0-32.0) pg MCHC (32.0-37.0) g/dL Plt Count (140-440) 10*3/uL MPV (9.5-12.2) fL Immature Gran % (Auto) % Neutrophils % % Lymphocytes % % Monocytes % % Eosinophils % % Basophils % % Immature Gran # (0.00-0.04) 10*3/uL Neutrophils # (1.80-7.70) 10*3/uL Lymphocytes # (0.90-5.00) 10*3/uL Monocytes # (0.20-1.00) 10*3/uL Eosinophils # (0.04-0.35) 10*3/uL Basophils # (0.00-0.10) 10*3/uL PT (10.0-12.5) sec INR (<1.2) APTT (22.0-30.0) sec Sodium (137-145) mmol/L Potassium (3.5-5.1) mmol/L Chloride (98-107) mmol/L Carbon Dioxide (22-30) mmol/L Anion Gap mmol/L BUN (7-17) mg/dL Creatinine (0.52-1.04) mg/dL Est GFR (CKD-EPI)AfAm (>60 ml/min/1.73 sqM) Est GFR (CKD-EPI)NonAf (>60 ml/min/1.73 sqM) Glucose (74-99) mg/dL Plasma Lactic Acid Doug (0.7-2.0) mmol/L Calcium (8.4-10.2) mg/dL Magnesium (1.6-2.3) mg/dL Total Bilirubin (0.2-1.3) mg/dL AST (14-36) U/L ALT (4-34) U/L Alkaline Phosphatase (38-126) U/L Troponin I (0.000-0.034) ng/mL NT-Pro-B Natriuret Pep pg/mL Total Protein (6.3-8.2) g/dL Albumin (3.5-5.0) g/dL Lipase (23-300) U/L Heterophile Antibody Negative (Negative) Influenza Type A (PCR) (Not Detectd) Influenza Type B (PCR) (Not Detectd) RSV (PCR) (Not Detectd) SARS-CoV-2 (PCR) (Not Detectd) - Radiology Data Radiology results: report reviewed, image reviewed Disposition Clinical Impression: Pneumonia, Sepsis, Hypomagnesemia, Dehydration Disposition: ADMITTED IP TO THIS HOSP
--- NOTE | 2025-05-31 12:24 | US ---
EXAMINATION TYPE: US gallbladder DATE OF EXAM: 05/31/2025 COMPARISON: CT 08/17/2020 CLINICAL INDICATION: Female, 84 years old with history of Elevated LFTs; Nausea, Vomiting, and chest pain. TECHNIQUE: Grayscale and color Doppler imaging of the right upper quadrant was performed. FINDINGS: EXAM MEASUREMENTS: Liver Length: 12.0 cm Gallbladder Wall: 0.2 cm CBD: 0.3 cm Right Kidney: 10.6 x 5.1 x 4.4 cm MALT LOADER NOTES: Pancreas: Dilated duct within Liver: wnl Gallbladder: wnl Evidence for sonographic Steele's sign: No CBD: wnl Right Kidney: wnl IMPRESSION: Pancreatic duct appears dilated. Consider MRCP with IV contrast for further evaluation to exclude mal ignancy. The common duct and bile ducts within normal limits. [facility], , 05/31/2025 12:22 PM
[2025-05-31] MEDS: AZITHROMYCIN 500 MG in SODIUM CHLORIDE 0.9% 250 ML IVPB STA (12:29)
[2025-05-31] MEDS ORDERED: HYDROcodone/APAP 5-325MG 1 EACH TAB PO PRN (12:44)
[2025-05-31] MEDS ORDERED: ONDANSETRON 4 MG/2 ML VIAL IVP PRN (12:44)
[2025-05-31] MEDS ORDERED: NALOXONE 0.4 MG/ML 1 ML VIAL IV PRN (12:44)
[2025-05-31] MEDS: LACTATED RINGERS 1,000 ML IV SCH ×2 (13:29→19:37)
[2025-05-31] MEDS: METOCLOPRAMIDE 5 MG/ML 2 ML VIAL IVP STA (13:40)
[2025-05-31] MEDS: MAGNESIUM SULFATE-D5W PMX 1 GM in DEXTROSE/WATER 1 100ML.BAG IVPB SCH (13:42)
--- NOTE | 2025-05-31 14:19 | P.HPIM ---
History of Present Illness 84-year-old female came in with complaints of pleuritic chest pain on the right side along with cough congestion with clear sputum production. Has been going on for about a week. Patient had a chest x-ray which showed right lower lobe infiltrate mostly look like atelectasis. Ordering procalcitonin. Patient did have leukocytosis denied any fever. Patient does not have any fever here either. Patient denied any abdominal pain. Patient had an ultrasound of the abdomen which showed incidental finding of dilated pancreatic duct. Her common bile duct is essentially within normal limits and other bile ductal system is within normal limits. Unknown why the patient had a gallbladder ultrasound. Patient was also having nausea vomiting. REVIEW OF SYSTEMS: All other systems are negative except those mentioned in the HPI PHYSICAL EXAMINATION: GENERAL: The patient is alert and oriented x3, not in any acute distress. Well developed, well nourished. HEENT: Pupils are round and equally reacting to light. EOMI. No scleral icterus. No conjunctival pallor. Normocephalic, atraumatic. No pharyngeal erythema. No thyromegaly. CARDIOVASCULAR: S1 and S2 present. No murmurs, rubs, or gallops. PULMONARY: Chest is clear to auscultation, no wheezing or crackles. ABDOMEN: Soft, nontender, nondistended, normoactive bowel sounds. No palpable organomegaly. MUSCULOSKELETAL: No joint swelling or deformity. EXTREMITIES: No cyanosis, clubbing, or pedal edema. NEUROLOGICAL: Gross neurological examination did not reveal any focal deficits. SKIN: No rashes. Assessment and plan Sepsis secondary to right lower lobe pneumonia: Continue with Rocephin azithromycin awaiting blood cultures and sputum cultures. Ordered procalcitonin level. - Incidental finding of dilated pancreatic duct patient will need MRCP/MRI to rule out any mass but this can be done as an outpatient. Patient denied any recent unintentional weight loss -Hypertension patient is hypotensive we will hold off her antihypertensive medications including hydrochlorothiazide. - Acute renal failure probably prerenal azotemia, with a competent of acute tubular necrosis from hypotension and sepsis. - Hypomagnesemia and hypokalemia secondary to hydrochlorothiazide which is being held - Elevated liver enzymes: Gallbladder ultrasound as mentioned above may be secondary to hypotension and shock liver will repeat CMP tomorrow - Elevated proBNP but clinically patient is not in heart failure exacerbation at this time -Type 2 diabetes mellitus patient will discharge on sliding scale insulin hold off metformin due to renal failure - Hyperlipidemia DVT prophylaxis:-Subcutaneous heparin Past Medical History Past Medical History: Diabetes Mellitus, Hyperlipidemia, Hypertension, Thyroid Disorder Additional Past Medical History / Comment(s): heart valve issues, Additional Past Surgical History / Comment(s): bilateral cateract surgery, bladder suspension, wrist, Past Psychological History: No Psychological Hx Reported Smoking Status: Never smoker Past Alcohol Use History: None Reported Past Drug Use History: None Reported Medications and Allergies Home Medications Medication Instructions Recorded Confirmed Type Atorvastatin [Lipitor] 20 mg PO DAILY 05/31/25 05/31/25 History Cholecalciferol [Vitamin D3 (125 125 mcg PO DAILY 05/31/25 05/31/25 History Mcg = 5000 Iu)] Cinnamon Bark [Cinnamon] 1,000 mg PO DAILY 05/31/25 05/31/25 History L.acidoph,Paracasei, B.lactis 1 cap PO DAILY 05/31/25 05/31/25 History [Probiotic] Levothyroxine Sodium [Synthroid] 88 mcg PO DAILY 05/31/25 05/31/25 History Magnesium Oxide [Mag-Ox] 250 mg PO HS 05/31/25 05/31/25 History Melatonin 5 mg PO HS 05/31/25 05/31/25 History Multivitamins, Thera [Multivitamin 1 tab PO DAILY 05/31/25 05/31/25 History (formulary)] Nitrofurantoin Monohyd/M-Cryst 100 mg PO Q12HR 05/31/25 05/31/25 History [Macrobid] Vitamin B Complex 1 cap PO DAILY 05/31/25 05/31/25 History atenoloL [Tenormin] 50 mg PO HS 05/31/25 05/31/25 History flaxseed oiL [Flax Oil] 1,300 mg PO DAILY 05/31/25 05/31/25 History hydroCHLOROthiazide [Hydrodiuril] 25 mg PO DAILY 05/31/25 05/31/25 History metFORMIN HCL [Glucophage] 500 mg PO DAILY 05/31/25 05/31/25 History Allergies Allergy/AdvReac Type Severity Reaction Status Date / Time Sulfa (Sulfonamide Allergy Rash/Hives Verified 05/31/25 13:04 Antibiotics) Physical Exam Vitals: Vital Signs Temp Pulse Resp BP Pulse Ox 05/31/25 13:16 97.3 F L 66 16 96/59 95 05/31/25 10:11 98.3 F 95 20 99/65 96 Intake and Output 05/30/25 05/31/25 05/31/25 22:59 06:59 14:59 Other: Weight 72.575 kg Results CBC & Chem 7: 05/31/25 10:41 05/31/25 10:41 Labs: Abnormal Lab Results - Last 24 Hours (Table) 05/31/25 05/31/25 Range/Units 10:41 10:41 WBC 15.19 H (4.50-10.00) 10*3/uL RBC 3.78 L (4.10-5.20) 10*6/uL Hgb 11.5 L (12.0-15.0) g/dL Hct 33.4 L (37.2-46.3) % Immature Gran # 0.14 H (0.00-0.04) 10*3/uL Neutrophils # 13.85 H (1.80-7.70) 10*3/uL Lymphocytes # 0.20 L (0.90-5.00) 10*3/uL Eosinophils # 0.45 H (0.04-0.35) 10*3/uL Sodium 136 L (137-145) mmol/L Potassium 3.4 L (3.5-5.1) mmol/L Chloride 97 L (98-107) mmol/L BUN 37 H (7-17) mg/dL Creatinine 1.23 H (0.52-1.04) mg/dL Glucose 146 H (74-99) mg/dL Magnesium 1.3 L (1.6-2.3) mg/dL Total Bilirubin 1.5 H (0.2-1.3) mg/dL AST 180 H (14-36) U/L ALT 128 H (4-34) U/L Alkaline Phosphatase 293 H (38-126) U/L Total Protein 6.2 L (6.3-8.2) g/dL
[2025-05-31] MEDS: POTASSIUM CHLORIDE ER 20 MEQ TAB.ER PO STA (15:30)
[2025-05-31 16:35] LABS: Glucose,Whole Blood 162 mg/dL (70-110)
[2025-05-31] MEDS: INSULIN LISPRO (HumaLOG) 100 UNIT/ML 10 mL VL SQ SCH (16:52)
[2025-05-31 16:55] LABS: Bilirubin,Urine Negative (Negative); Blood,Urine Negative (Negative); Color,Urine Yellow; Glucose,Urine (UA) Negative (Negative); Hyaline Casts,Urine 1 /lpf (0-2); Ketones,Urine Negative (Negative); Leukocyte Esterase,Urine Small (Negative); Nitrite,Urine Negative (Negative); PH, Urine 5.0 (5.0-8.0); Protein,Urine Negative (Negative); RBC,Urine 1 /hpf (0-5); Specific Gravity,Urine 1.013 (1.001-1.035); Squamous Epithelial Cell,Urine 1 /hpf (0-4); Urobilinogen,Urine 2.0 mg/dL (<2.0); WBC,Urine 4 /hpf (0-5)
[2025-05-31 20:14] LABS: Glucose,Whole Blood 126 mg/dL (70-110)
[2025-05-31] MEDS: HEPARIN SODIUM,PORCINE 5,000 UNIT/ML 1 ML VIAL SQ SCH (22:06)
[2025-05-31] MEDS: MAGNESIUM OXIDE 400 MG TAB PO SCH (22:06)
[2025-05-31] MEDS: MELATONIN 5 MG TABLET PO SCH (22:06)
[2025-06-01 06:04] LABS: Glucose,Whole Blood 108 mg/dL (70-110)
--- NOTE | 2025-06-01 06:24 | XR ---
EXAMINATION TYPE: XR chest 2V DATE OF EXAM: 06/01/2025 6:18 AM COMPARISON: Chest radiographs from 05/31/2025 TECHNIQUE: XR chest 2V Frontal and lateral views of the chest. CLINICAL INDICATION:Female, 84 years old with history of pneumonia; FINDINGS: Lungs/Pleura: No pleural effusion or pneumothorax. Chronic diffuse interstitial prominence with focal reticular opacities within the right lung base. Heart/mediastinum: Cardiomediastinal silhouette is prominent in size. Musculoskeletal: Multiple level degenerative disc disease changes seen throughout the spine. IMPRESSION: Chronic diffuse interstitial prominence with focal reticular opacities within the right lung base con cerning for developing pneumonia versus atelectasis. [facility], , 06/01/2025 6:21 AM
[2025-06-01] MEDS: LEVOTHYROXINE 88 MCG TAB PO SCH (06:27)
[2025-06-01 08:19] LABS: HCT 28.2 % (37.2-46.3); HGB 9.2 g/dL (12.0-15.0); MCH 30.0 pg (27.0-32.0); MCHC 32.6 g/dL (32.0-37.0); MCV 91.9 FL (80.0-97.0); NRBC Per 100 WBC 0 X 10*3/uL (0.00-0.01); Platelet Count 155 X 10*3/uL (140-440); RBC 3.07 X 10*6/uL (4.10-5.20); RDW 13.2 % (11.5-14.5); WBC 6.37 X 10*3/uL (4.50-10.00)
[2025-06-01 08:34] LABS: ALT 105 U/L (8-44); AST 110 U/L (13-35); Albumin 2.9 g/dL (3.8-4.9); Albumin/Globulin Ratio 1.53 Ratio (1.60-3.17); Alkaline Phosphatase 224 U/L (41-126); Anion Gap 11.00 mmol/L (4.00-12.00); BUN/Creat Ratio 27.64 Ratio (12.00-20.00); Blood Urea Nitrogen 30.4 mg/dL (9.0-27.0); Calcium 8.7 mg/dL (8.7-10.3); Carbon Dioxide 26.0 mmol/L (21.6-31.8); Chloride 100 mmol/L (96-109); Globulin 1.9 g/dL (1.6-3.3); Glucose 104 mg/dL (70-110); Magnesium 2.0 mg/dL (1.5-2.4); Potassium 3.2 mmol/L (3.5-5.5); Sodium 137 mmol/L (135-145); Total Protein 4.8 g/dL (6.2-8.2)
[2025-06-01] MEDS ORDERED: NON FORMULARY DRUG (Vitamin B Complex [Vitamin B Complex] 1 EACH Capsule) PO SCH (09:00)
[2025-06-01] MEDS ORDERED: metFORMIN 500 MG TAB PO SCH (09:00)
[2025-06-01] MEDS ORDERED: hydroCHLOROthiazide 25 MG TAB PO SCH (09:00)
[2025-06-01] MEDS ORDERED: FLAXSEED OIL 1300 MG PO SCH (09:00)
[2025-06-01] MEDS ORDERED: NON FORMULARY DRUG (Cinnamon Bark [Cinnamon] 500 MG Capsule) PO SCH (09:00)
[2025-06-01] MEDS: ATORVASTATIN 20 MG TAB PO SCH (09:47)
[2025-06-01] MEDS: MULTIVITAMINS, THERA 1 EACH TAB PO SCH (09:47)
[2025-06-01] MEDS: PANTOPRAZOLE 40 MG/10 ML VIAL IV SCH (09:47)
[2025-06-01] MEDS: LACTOBACILLUS ACIDOPHILUS/PECT 1 EACH CAPSULE PO SCH (09:47)
[2025-06-01] MEDS: CHOLECALCIFEROL 125 MCG (5000 IU) TABLET PO SCH (09:47)
[2025-06-01] MEDS: AZITHROMYCIN 500 MG TAB PO SCH (09:47)
[2025-06-01 10:32] LABS: Hepatitis A Antibody IgM Nonreactive (Nonreactive); Hepatitis B Surface Antigen Nonreactive (Nonreactive); Hepatitis C IgG Antibody Nonreactive (Nonreactive)
[2025-06-01 11:07] LABS: Glucose,Whole Blood 129 mg/dL (70-110)
[2025-06-01] MEDS: POTASSIUM CHLORIDE ER 20 MEQ TAB.ER PO STA (12:11)
--- NOTE | 2025-06-01 13:05 | P.PN ---
Subjective 84-year-old female came in with complaints of pleuritic chest pain on the right side along with cough congestion with clear sputum production. Has been going on for about a week. Patient had a chest x-ray which showed right lower lobe infiltrate mostly look like atelectasis. Ordering procalcitonin. Patient did have leukocytosis denied any fever. Patient does not have any fever here either. Patient denied any abdominal pain. Patient had an ultrasound of the abdomen which showed incidental finding of dilated pancreatic duct. Her common bile duct is essentially within normal limits and other bile ductal system is within normal limits. Unknown why the patient had a gallbladder ultrasound. Patient was also having nausea vomiting. 06/01: Patient seen at bedside, she is feeling better but not feeling well enough to take care of herself. She denies fever, chills shortness of breath, exercise intolerance. REVIEW OF SYSTEMS: All other systems are negative except those mentioned in the HPI PHYSICAL EXAMINATION: GENERAL: The patient is alert and oriented x3, not in any acute distress. Well developed, well nourished. HEENT: Pupils are round and equally reacting to light. EOMI. No scleral icterus. No conjunctival pallor. Normocephalic, atraumatic. No pharyngeal erythema. No thyromegaly. CARDIOVASCULAR: S1 and S2 present. No murmurs, rubs, or gallops. PULMONARY: Chest is clear to auscultation, no wheezing or crackles. ABDOMEN: Soft, nontender, nondistended, normoactive bowel sounds. No palpable organomegaly. MUSCULOSKELETAL: No joint swelling or deformity. EXTREMITIES: No cyanosis, clubbing, or pedal edema. NEUROLOGICAL: Gross neurological examination did not reveal any focal deficits. SKIN: No rashes. Assessment and plan Sepsis secondary to right lower lobe pneumonia: Continue with Rocephin azithromycin awaiting blood cultures and sputum cultures. Ordered procalcitonin level. - Incidental finding of dilated pancreatic duct patient will need MRCP/MRI to rule out any mass but this can be done as an outpatient. Patient denied any recent unintentional weight loss -Hypertension patient is hypotensive we will hold off her antihypertensive medications including hydrochlorothiazide. - Acute renal failure probably prerenal azotemia, with a competent of acute tubular necrosis from hypotension and sepsis. - Hypomagnesemia and hypokalemia secondary to hydrochlorothiazide which is being held - Elevated liver enzymes: Gallbladder ultrasound as mentioned above may be secondary to hypotension and shock liver will repeat CMP tomorrow - Elevated proBNP but clinically patient is not in heart failure exacerbation at this time -Type 2 diabetes mellitus patient will discharge on sliding scale insulin hold off metformin due to renal failure - Hyperlipidemia DVT prophylaxis:-Subcutaneous heparin DC: Receiving one more day of IV abx, plan for DC tomorrow on oral Abx Objective - Vital Signs Vital signs: Vital Signs Temp 97.9 F 06/01/25 01:07 Pulse 69 06/01/25 01:07 Resp 17 06/01/25 01:07 BP 90/47 06/01/25 01:07 Pulse Ox 97 06/01/25 01:07 FiO2 Intake & Output 05/31/25 06/01/25 06/01/25 18:59 06:59 18:59 Weight 72.575 kg Other: Voiding Method Toilet # Voids 1 2 - Labs CBC & Chem 7: 06/01/25 03:59 06/01/25 03:59 Labs: Abnormal Lab Results - Last 24 Hours (Table) 05/31/25 05/31/25 05/31/25 Range/Units 10:35 10:41 10:41 WBC 15.19 H (4.50-10.00) 10*3/uL RBC 3.78 L (4.10-5.20) 10*6/uL Hgb 11.5 L (12.0-15.0) g/dL Hct 33.4 L (37.2-46.3) % Immature Gran # 0.14 H (0.00-0.04) 10*3/uL Neutrophils # 13.85 H (1.80-7.70) 10*3/uL Lymphocytes # 0.20 L (0.90-5.00) 10*3/uL Eosinophils # 0.45 H (0.04-0.35) 10*3/uL Sodium 136 L (137-145) mmol/L Potassium 3.4 L (3.5-5.1) mmol/L Chloride 97 L (98-107) mmol/L BUN 37 H (7-17) mg/dL Creatinine 1.23 H (0.52-1.04) mg/dL Glucose 146 H (74-99) mg/dL POC Glucose (mg/dL) (70-110) mg/dL Magnesium 1.3 L (1.6-2.3) mg/dL Total Bilirubin 1.5 H (0.2-1.3) mg/dL AST 180 H (14-36) U/L ALT 128 H (4-34) U/L Alkaline Phosphatase 293 H (38-126) U/L Total Protein 6.2 L (6.3-8.2) g/dL Procalcitonin (0.02-0.50) ng/mL Urine Appearance Cloudy H (Clear) Ur Leukocyte Esterase Small H (Negative) 05/31/25 05/31/25 05/31/25 Range/Units 10:41 16:32 20:12 WBC (4.50-10.00) 10*3/uL RBC (4.10-5.20) 10*6/uL Hgb (12.0-15.0) g/dL Hct (37.2-46.3) % Immature Gran # (0.00-0.04) 10*3/uL Neutrophils # (1.80-7.70) 10*3/uL Lymphocytes # (0.90-5.00) 10*3/uL Eosinophils # (0.04-0.35) 10*3/uL Sodium (137-145) mmol/L Potassium (3.5-5.1) mmol/L Chloride (98-107) mmol/L BUN (7-17) mg/dL Creatinine (0.52-1.04) mg/dL Glucose (74-99) mg/dL POC Glucose (mg/dL) 162 H 126 H (70-110) mg/dL Magnesium (1.6-2.3) mg/dL Total Bilirubin (0.2-1.3) mg/dL AST (14-36) U/L ALT (4-34) U/L Alkaline Phosphatase (38-126) U/L Total Protein (6.3-8.2) g/dL Procalcitonin 0.85 H (0.02-0.50) ng/mL Urine Appearance (Clear) Ur Leukocyte Esterase (Negative)
[2025-06-01 17:25] LABS: Glucose,Whole Blood 110 mg/dL (70-110)
[2025-06-01 21:10] LABS: Glucose,Whole Blood 101 mg/dL (70-110)
[2025-06-02 04:11] LABS: HCT 30.2 % (37.2-46.3); HGB 10.2 g/dL (12.0-15.0); MCH 31.0 pg (27.0-32.0); MCHC 33.8 g/dL (32.0-37.0); MCV 91.8 fL (80.0-97.0); Platelet Count 169 10*3/uL (140-440); RBC 3.29 10*6/uL (4.10-5.20); RDW 13.0 % (11.5-14.5); WBC 6.07 10*3/uL (4.50-10.00)
[2025-06-02 04:28] LABS: African American GFR (CKD) >90 (>60 ml/min/1.73 sqM); Anion Gap 7 mmol/L; Blood Urea Nitrogen 25 mg/dL (7-17); Calcium 9.3 mg/dL (8.4-10.2); Carbon Dioxide 28 mmol/L (22-30); Chloride 102 mmol/L (98-107); Glucose 95 mg/dL (74-99); Non-African American GFR(CKD) 81 (>60 ml/min/1.73 sqM); Potassium 4.0 mmol/L (3.5-5.1); Sodium 137 mmol/L (137-145)
[2025-06-02] MEDS: MORPHINE SULFATE 4 MG/ML SYRINGE IV PRN (06:06)
[2025-06-02 06:27] LABS: Glucose,Whole Blood 97 mg/dL (70-110)
[2025-06-02] MEDS: ACETAMINOPHEN TAB 325 MG TAB PO PRN (09:55)
[2025-06-02 11:46] LABS: Glucose,Whole Blood 104 mg/dL (70-110)
[2025-06-02 12:39] VITALS: BP 121/66; PULSE 75; RESP 17; TEMP 97.5
--- NOTE | 2025-06-02 12:54 | P.DS ---
Providers Date of admission: 05/31/25 12:37 Attending physician: Ayden Dubose Primary care physician: Shelli Hahn [facility] Course: Discharge Diagnosis: Pneumonia Hospital Course: 84-year-old female came in with complaints of pleuritic chest pain on the right side along with cough congestion with clear sputum production. Has been going on for about a week. Patient had a chest x-ray which showed right lower lobe infiltrate mostly look like atelectasis. Ordering procalcitonin. Patient did have leukocytosis denied any fever. Patient does not have any fever here either. Patient denied any abdominal pain. While admitted she received chest xray for suspicion of pneumonia with hypotension and having difficulty ambulating. Patient recieved RUQ ultrasound for elevated LFTs found incidentally on bloodwork, Hepatitis panel was ordered and returned negative. She was managed with fluids and IV abx and electrolyte repletion. Initial imaging showed RLL infiltrate and subsequent xray shows improvement. WBC initially 15.19, now 6.37. She is being transitioned to PO abx. At time of discharge, she is hemodynamically stable with lab chemistries in normal range, she tolerating ambulation, and advised to followup with PCP in 1-2 days. Pt seen and examined at bedside: [] Vital signs reveiwed and stable: General: non toxic, no distress, appears at stated age, normal weight Derm: no unusual rashes/lesions, warm Head: atraumatic, normocephalic, symmetric Eyes: EOMI, no lid lag, anicteric sclera, pupils equal round reactive to light ENT: Nose and ears atraumatic Neck: No cervical lymphadenopathy, trachea midline, supple Mouth: no lip lesion, mucus membranes moist Cardiovascular: S1S2 reg, no murmur, positive dorsalis pedis pulse bilateral, no edema Lungs: Decreased air entry bilaterally, no rhonchi, no rales, no accessory muscle use Abdominal: soft, nontender to palpation, no guarding Ext: muscle strength 5 out of 5 in all 4 extremities grossly, no gross muscle atrophy, no contractures, Neuro: CN II-XI grossly intact, no gross focal neuro deficits Psych: Alert, oriented, appropriate affect A total of 30 minutes were spent preparing this complex discarge summary. Patient was discharged on 06/02. Plan - Discharge Summary Discharge Rx Participant: No New Discharge Prescriptions: New Levofloxacin [Levaquin] 750 mg PO DAILY 5 Days #5 tab Continue Melatonin 5 mg PO HS Multivitamins, Thera [Multivitamin (formulary)] 1 tab PO DAILY hydroCHLOROthiazide [Hydrodiuril] 25 mg PO DAILY Cholecalciferol [Vitamin D3 (125 Mcg = 5000 Iu)] 125 mcg PO DAILY flaxseed oiL [Flax Oil] 1,300 mg PO DAILY Cinnamon Bark [Cinnamon] 1,000 mg PO DAILY Vitamin B Complex 1 cap PO DAILY Nitrofurantoin Monohyd/M-Cryst [Macrobid] 100 mg PO Q12HR Magnesium Oxide [Mag-Ox] 250 mg PO HS L.acidoph,Paracasei, B.lactis [Probiotic] 1 cap PO DAILY metFORMIN HCL [Glucophage] 500 mg PO DAILY atenoloL [Tenormin] 50 mg PO HS Levothyroxine Sodium [Synthroid] 88 mcg PO DAILY Atorvastatin [Lipitor] 20 mg PO DAILY Discharge Medication List Atorvastatin [Lipitor] 20 mg PO DAILY 05/31/25 [History] Cholecalciferol [Vitamin D3 (125 Mcg = 5000 Iu)] 125 mcg PO DAILY 05/31/25 [History] Cinnamon Bark [Cinnamon] 1,000 mg PO DAILY 05/31/25 [History] L.acidoph,Paracasei, B.lactis [Probiotic] 1 cap PO DAILY 05/31/25 [History] Levothyroxine Sodium [Synthroid] 88 mcg PO DAILY 05/31/25 [History] Magnesium Oxide [Mag-Ox] 250 mg PO HS 05/31/25 [History] Melatonin 5 mg PO HS 05/31/25 [History] Multivitamins, Thera [Multivitamin (formulary)] 1 tab PO DAILY 05/31/25 [History] Nitrofurantoin Monohyd/M-Cryst [Macrobid] 100 mg PO Q12HR 05/31/25 [History] Vitamin B Complex 1 cap PO DAILY 05/31/25 [History] atenoloL [Tenormin] 50 mg PO HS 05/31/25 [History] flaxseed oiL [Flax Oil] 1,300 mg PO DAILY 05/31/25 [History] hydroCHLOROthiazide [Hydrodiuril] 25 mg PO DAILY 05/31/25 [History] metFORMIN HCL [Glucophage] 500 mg PO DAILY 05/31/25 [History] Levofloxacin [Levaquin] 750 mg PO DAILY 5 Days #5 tab 06/02/25 [Rx] Follow up Appointment(s)/Referral(s): Shelli Hahn MD [Primary Care Provider] - 06/04/25 9:30 am Patient Instructions/Handouts: Pneumonia (DC)
--- NOTE | 2025-06-02 13:25 | CDI ---
Documentation Clarification Form Date: 06/02/2025 From: Bogdan Cartwright Admit Date: 05/31/2025 12:37:00 PM Patient Name: Sharita Multani Visit Number: [id number] ATTENTION: The Clinical Documentation Specialists (CDI) and [facility] Coding Staff appreciate your assistance in clarifying documentation. Please respond to the clarification below the line at the bottom and electronically sign. The CDI & [facility] Coding staff will review the response and follow-up if needed. Please note: Queries are made part of the Legal Health Record. If you have any questions, please contact the author of this message via ITS. Dr. Sedrick MD., Sepsis is documented 05/31 H&P which may lack sufficient clinical evidence/support in the medical record. Additional clarification is requested. History/Risk Factors: 84-year-old female came in with complaints of pleuritic chest pain on the right side along with cough congestion with clear sputum production. Clinical Indicators: 05/31 H&P: Sepsis secondary to right lower lobe pneumonia: Continue with Rocephin azithromycin awaiting blood cultures and sputum cultures. Ordered procalcitonin level. Date 05/31 06/01 06/02 WBC 15.19 6.37 6.07 Procalcitonin 0.85 - - Blood Culture NGTD - - Temp 97.3 97.6 97.5 HR 66 67 75 RR 16 18 17 Treatment: Rocephin 2gm (06/01-06/02), Azithromycin 500mg (06/01-06/02). After work up and study, please clarify which diagnosis is most appropriate? [ ] Sepsis is ruled out. The patient had a localized infection without systemic response or organ dysfunction. [ ] Sepsis was initially suspected, but subsequent clinical findings did not support the diagnosis, and it has been ruled out. [ x ] Sepsis is clinically supported as evidenced by these additional clinical indicators: [ ] Other, please specify MTDD
[2025-06-03] MEDS ORDERED: PANTOPRAZOLE 40 MG TABLET PO SCH (07:30)
== END 2025-06-02 13:58 | disposition home or self-care (01) | DRG 871 ==
LOC: EC 10:09 → 4SSUR 12:37
PROVIDERS: ADMIT Internal Medicine; ATTEND Internal Medicine
DX: A41.9 Sepsis, unspecified organism (principal); J18.9 Pneumonia, unspecified organism; N17.0 Acute kidney failure with tubular necrosis; K86.89 Other specified diseases of pancreas; E11.9 Type 2 diabetes mellitus without complications; I10 Essential (primary) hypertension; E86.0 Dehydration; E83.42 Hypomagnesemia; R74.8 Abnormal levels of other serum enzymes; E78.5 Hyperlipidemia, unspecified; T50.2X5A Adverse effect of carbonic-anhydrase inhibitors, benzothiadiazides and other diuretics, initial encounter; E87.6 Hypokalemia; Z79.84 Long term (current) use of oral hypoglycemic drugs; Z88.2 Allergy status to sulfonamides; Z79.899 Other long term (current) drug therapy; Z79.890 Hormone replacement therapy
CPT/HCPCS: 36415; 71046; 76705; 80048; 80053; 80074; 81001; 83605; 83690; 83735; 83880; 84145; 84484; 85025; 85027; 85610; 85730; 86308; 87040; 87449; 87636; 93005; 96361; 96365; 96366; 96367; 96368; 96375; 99285